=== PATIENT | male | born 2000 | race Two or more races ===

== ENCOUNTER 2022-10-13 11:29 | Emergency (ER) | payer OTHER ==
[~2022-10-13] VITALS: Ht 177.8 cm; Wt 95.0 kg
[2022-10-13 15:01] VITALS: BP 119/65
[2022-10-13] MEDS ORDERED: SILVER SULFADIAZINE 1 % TOPICAL CREAM 50GM TOP ONE (15:15)
[2022-10-13] MEDS ORDERED: IBUP800T26 PO (15:39)
== END 2022-10-13 15:44 | disposition home or self-care (01) ==
LOC: ER 11:29
DX: T23.201A Burn of second degree of right hand, unspecified site, initial encounter (principal); X19.XXXA Contact with other heat and hot substances, initial encounter; Y93.89 Activity, other specified; Y92.89 Other specified places as the place of occurrence of the external cause; Y99.8 Other external cause status